=== PATIENT | female | born 1975 | race Caucasian/White ===

== ENCOUNTER → 2017-08-16 | Outpatient (CLI) | payer OTHER ==
[~2017-08-16] MED LIST: ANAPROX DS550 MG PO; CLARITIN10 MG PO; KEFLEX500 MG PO; MOBIC15 MG PO; OMEPRAZOLE D/R20 MG PO; OMNICEF300 MG PO; SYNTHROID0.05 MG PO; VITAMIN D-32000 UNIT PO; VITAMIN D50000 I3 PO
== END | disposition home or self-care (01) ==
LOC: ORTHO 00:21
DX: M17.9 Osteoarthritis of knee, unspecified (principal)

== ENCOUNTER → 2017-10-20 | Outpatient (CLI) | payer OTHER | END | disposition home or self-care (01) | LOC: CANPRECLI → ORTHO 02:52 | DX: M25.572 Pain in left ankle and joints of left foot (principal); M17.12 Unilateral primary osteoarthritis, left knee ==